=== PATIENT | male | born 1945 ===

== ENCOUNTER → 2018-12-22 22:09 | Outpatient (REF) | payer OTHER, SELFPAY ==
[2018-12-23 01:33] LABS: Alanine Aminotransferase 44 IU/L (21-72); Albumin Globulin Ratio 1.3 (1.0-2.8); Alkaline Phosphatase 61 U/L (38-126); Aspartate Aminotransferase 24 IU/L (17-59); BUN Creatinine Ratio 18.9 (6-22); Bilirubin Total 1.6 mg/dL (0.2-1.3); Blood Urea Nitrogen 17 mg/dL (9-20); Calcium 8.9 mg/dL (8.4-10.2); Carbon Dioxide 29 mmol/L (22-32); Chloride 88 mmol/L (98-107); Cholesterol 146 mg/dL (140-199); Estimated Glomerular Filt Rate > 60.0 mL/min (>60); Glucose 174 mg/dL (80-110); HDL Cholesterol 40 mg/dL (40-60); HEMOLYSIS < 15 (0-50); LDL Cholesterol Calculated 95 mg/dL (<100); Sodium 130 mmol/L (137-145); Triglycerides 56 mg/dL (35-150)
[2018-12-23 01:50] LABS: Vitamin D 25 Hydroxy (D3) 52.5 ng/mL (30.0-100.0)
[2018-12-23 01:52] LABS: Add Manual Diff / Slide Review NO; Basophils Absolute Auto 0 /uL (0-100); Basophils Percent Auto 0.2 % (0-2); Eosinophils Absolute Auto 0 /uL (0-450); Eosinophils Percent Auto 0.3 % (2-4); Hematocrit 48.3 % (41-53); Lymphocytes Absolute Auto 1400 /uL (1100-4500); Lymphocytes Percent Auto 8.4 % (25-40); Mean Corpuscular HGB Conc 33.2 % (30-36); Mean Corpuscular Hemoglobin 28.6 PG (26-34); Mean Corpuscular Volume 86.1 fL (80-100); Monocytes Absolute Auto 2200 /uL (0-900); Monocytes Percent Auto 12.8 % (3-14); Neutrophils Absolute Auto 13300 /uL (1500-7000); Neutrophils Percent Auto 78.3 % (50-75); Platelet Count 274 X10^3/uL (150-400); Red Blood Cell Count 5.61 X10^6/uL (4.5-5.9)
[2018-12-23 02:03] LABS: Thyroid Stimulating Hormone 0.58 uIU/mL (0.47-4.68)
[2018-12-23 02:16] LABS: Hemoglobin A1C% w Est Avg Glu 6.3 % (4.0-6.0)
[2018-12-23 02:29] LABS: Gamma Glutamyl Transpeptidase 38 U/L (15-73)
[2018-12-23 09:29] LABS: HEMOLYSIS < 15 (0-50); Iron 32 ug/dL (49-181)
[2018-12-23 09:39] LABS: Percent Iron Saturation 11 % (20-50); Total Iron Binding Capacity 299 ug/dL (261-462); Transferrin 203 mg/dL (206-381)
[2018-12-25 10:13] LABS: Anti Mitochondrial ABY IGG < 20.1 Units (< 20.1)
[2018-12-25 14:34] LABS: Immunoglobulin G, Quantitative 1013 mg/dL (694-1618)
[2018-12-25 18:02] LABS: Insulin Level Total 9.9 uIU/mL (2.0-19.6)
[2018-12-27 19:54] LABS: ANCA Screen Negative (Negative)
[2018-12-29 17:06] LABS: Albumin 3.7 g/dL (3.8-4.8); Alpha 1 Globulin 0.4 g/dL (0.2-0.3); Alpha 2 Globulin 0.8 g/dL (0.5-0.9); Beta 1 Globulin 0.4 g/dL (0.4-0.6); Gamma Globulin 1.1 g/dL (0.8-1.7); Protein, Total 6.9 g/dL (6.1-8.1)
== END ==
LOC: LAB 22:09
PROVIDERS: Visit Provider Family Medicine
DX: R16.0 Hepatomegaly, not elsewhere classified (principal)
CPT/HCPCS: 36415; 80053; 80061; 82306; 82728; 82784; 82977; 83036; 83516; 83525; 83540; 83550; 84155; 84165; 84443; 85025; 86021